=== PATIENT | male | born 1955 | race African-American/Black ===

== ENCOUNTER 2020-03-02 23:32 | Emergency (ER) | payer OTHER ==
[~2020-03-02] VITALS: Ht 175.3 cm; Wt 158.8 kg
[2020-03-02 23:45] VITALS: BP 0/0
== END 2020-03-02 23:54 | disposition expired ==
LOC: ER 23:32
DX: I46.9 Cardiac arrest, cause unspecified (principal)
CPT/HCPCS: 92950